=== PATIENT | female | born 1980 | race Caucasian/White ===

== ENCOUNTER → 2018-05-31 | Outpatient (CLI) | payer OTHER ==
[~2018-05-31] MED LIST: BACTRIM DS TAB1 EACH PO; BLOOD PRESSURE MED?; MOBIC15 MG PO; VICODIN 5-5001 EACH; [UNRECOGNIZED DRUG - REMARK]
== END ==
LOC: M.RAD 05-24 15:40
DX: N64.4 Mastodynia (principal); R92.2 Inconclusive mammogram; I10 Essential (primary) hypertension; G43.909 Migraine, unspecified, not intractable, without status migrainosus